=== PATIENT | female | born 1990 | race Caucasian/White ===

== ENCOUNTER 2016-11-12 08:32 | Emergency (ER) | payer SELFPAY ==
[~2016-11-12 08:32] MED LIST: ALBUTEROL17 GM INH; ZITHROMAX PO
[2016-11-12 10:07] LABS: URINE SOURCE CLEAN CATCH
[2016-11-12 10:20] LABS: URINE APPEARANCE CLEAR; URINE BILIRUBIN NEG (NEG); URINE BLOOD NEG (NEG); URINE COLOR YELLOW; URINE GLUCOSE NEG (NEG); URINE KETONE NEG (NEG); URINE LEUKOCYTE ESTERASE NEG (NEG); URINE NITRATE NEG (NEG); URINE PH 7.5 (5-8); URINE PROTEIN NEG (NEG); URINE SPECIFIC GRAVITY 1.003 (1.003-1.035); URINE UROBILINOGEN 0.2 MG/DL (NEG)
[2016-11-12 10:26] LABS: CULTURE INDICATED? NO
== END 2016-11-12 10:38 | disposition home or self-care (01) ==
LOC: CED 08:32
PROVIDERS: Physician Assistant
DX: J06.9 Acute upper respiratory infection, unspecified (principal); J45.909 Unspecified asthma, uncomplicated
CPT/HCPCS: 36415; 81003; 84703; 86308; 87651; 94640; 99283